=== PATIENT | male | born 1940 | race Caucasian/White ===

== ENCOUNTER 2018-03-07 00:12 | Inpatient (IN) | payer OTHER ==
[2018-03-07] VITALS (7 sets, daily range): BP systolic 91–139; BP diastolic 55–79
[~2018-03-07] VITALS: Ht 172.7 cm; Wt 81.2 kg
--- NOTE | ~2018-03-07 | EKG ---
[place] [id number] [facility] [employer] [place] [address] ELECTROCARDIOGRAM REPORT Name: HONG MEYERS Room #: 452-P ADM IN M.R.#: [id number] Admission: 03/07/18 Attend Phys: Primitivo Lipscomb MD Discharge: Date of : 38 Report #: [id number] THIS REPORT FOR: //name// [facility] ED Test Date: 2018-03-07 Test Time: 01:14:54 Pat Name: HONG MEYERS Department: Room: Gender: M Rn Float: [facility] : 1940 Requested By: Delgado Lou Order Number: [id number] MD: Roman Van Measurements Intervals [place] Rate: 96 P: 46 TX: 205 QRS: 49 QRSD: 83 T: 75 QT: 341 QTc: 431 Interpretive Statements Sinus rhythm Low voltage, precordial leads Abnormal R-wave progression, early transition Baseline wander in lead(s) V1 No previous ECG available for comparison Electronically Signed On 03-07-2018 7:45:04 CDT by Roman Van [email or web address] <ELECTRONICALLY SIGNED> By: Roman Van MD, [facility] 03/07/18 0745 [id number] 011 Roman Van MD, [facility] /EPI
[2018-03-07] MEDS ORDERED: ZOCOR20 MG PO (00:45)
[2018-03-07] MEDS ORDERED: CLARITIN10 MG PO (00:45)
[2018-03-07] MEDS ORDERED: LISINOPRIL10 MG PO (00:45)
[2018-03-07] MEDS ORDERED: ASPIR 8181 MG PO (00:45)
[2018-03-07 01:24] LABS: ABSOLUTE NEUTROPHILS 8.6 thou/uL (1.4-8.2); BASOPHILS 0.8 % (0.0-2.0); EOSINOPHILS 2.4 % (0.0-3.0); HEMATOCRIT 39.9 % (42.0-52.0); HEMOGLOBIN 13.5 gm/dL (14.0-18.0); LYMPHOCYTES 19.2 % (24.0-44.0); MCH 29.5 pg (26.0-34.0); MCHC 33.9 g/dL (28.0-37.0); MONOCYTES 7.2 % (1.0-8.0); PLATELET COUNT 271 thou/uL (150-400); POLYS 70.4 % (36.0-66.0); RBC 4.58 mil/uL (4.50-6.00); WBC 12.2 thou/uL (4.0-11.0)
[2018-03-07 01:28] LABS: ANION GAP 11 mmol/L (7-16); BUN 23 mg/dL (7-18); CALCIUM 9.9 mg/dL (8.5-10.1); CHLORIDE 103 mmol/L (98-107); CO2 22 mmol/L (21-32); CREATININE 1.5 mg/dL (0.7-1.3); GLUCOSE 147 mg/dL (74-106); POTASSIUM 4.2 mmol/L (3.5-5.1); SODIUM 136 mmol/L (136-145)
[2018-03-07 01:36] LABS: ALBUMIN 3.6 g/dL (3.4-5.0); MAGNESIUM 1.9 mg/dL (1.8-2.4); SGOT 19 U/L (15-37); SGPT 21 U/L (30-65); TOTAL BILIRUBIN 0.7 mg/dL (<0.1-1.0); TOTAL PROTEIN 7.6 g/dL (6.4-8.2); TROPONIN-I < 0.04 ng/mL (<0.06)
[2018-03-07] MEDS ORDERED: LISINOPRIL20 MG PO (02:24)
[2018-03-07 20:58] LABS: URINE BILIRUBIN NEGATIVE (Negative); URINE BLOOD NEGATIVE (Negative); URINE CLARITY CLEAR; URINE COLOR YELLOW; URINE GLUCOSE-RANDOM* NEGATIVE (Negative); URINE KETONES NEGATIVE (Negative); URINE LEUKOCYTES-REFLEX NEGATIVE (Negative); URINE NITRITE-REFLEX NEGATIVE (Negative); URINE PROTEIN (DIPSTICK) NEGATIVE (Negative); URINE SPECIFIC GRAVITY 1.025 (1.005-1.035); URINE UROBILINOGEN 0.2 E.U./dl (0.2-1.0)
[2018-03-08 03:16] VITALS: BP 134/78
[2018-03-08 05:32] LABS: HEMATOCRIT 33.8 % (42.0-52.0); MCH 29.7 pg (26.0-34.0); MCHC 34.1 g/dL (28.0-37.0); MCV 87.1 fL (80.0-100.0); RBC 3.88 mil/uL (4.50-6.00); RDW 13.2 % (10.5-14.5)
[2018-03-08 05:36] LABS: HEMOGLOBIN 11.5 gm/dL (14.0-18.0)
[2018-03-08 05:37] LABS: CALCIUM 8.7 mg/dL (8.5-10.1); CREATININE 1.3 mg/dL (0.7-1.3); POTASSIUM 4.2 mmol/L (3.5-5.1)
[2018-03-08 08:00] VITALS: BP 149/88
[2018-03-08 16:00] VITALS: BP 137/81
[2018-03-08 20:36] VITALS: BP 148/91
[2018-03-09 00:12] VITALS: BP 146/85
[2018-03-09 02:42] LABS: CALCIUM 8.8 mg/dL (8.5-10.1); CREATININE 1.1 mg/dL (0.7-1.3); POTASSIUM 3.8 mmol/L (3.5-5.1)
[2018-03-09 02:43] LABS: ABSOLUTE NEUTROPHILS 9.6 thou/uL (1.4-8.2); BASOPHILS 0.8 % (0.0-2.0); EOSINOPHILS 2.4 % (0.0-3.0); HEMATOCRIT 34.2 % (42.0-52.0); HEMOGLOBIN 11.6 gm/dL (14.0-18.0); MCH 29.4 pg (26.0-34.0); MCHC 33.9 g/dL (28.0-37.0); MCV 86.8 fL (80.0-100.0); MONOCYTES 8.8 % (1.0-8.0); PLATELET COUNT 203 thou/uL (150-400); RBC 3.94 mil/uL (4.50-6.00); RDW 12.9 % (10.5-14.5); WBC 12.8 thou/uL (4.0-11.0)
[2018-03-09 05:00] VITALS: BP 124/74
[2018-03-09 08:00] VITALS: BP 137/87
[2018-03-09 16:00] VITALS: BP 144/92
[2018-03-09 19:18] VITALS: BP 138/86
[2018-03-10 02:57] VITALS: BP 138/86
[2018-03-10 05:58] LABS: HEMATOCRIT 34.7 % (42.0-52.0); MCH 29.7 pg (26.0-34.0); MCHC 34.5 g/dL (28.0-37.0); MCV 86.2 fL (80.0-100.0); RBC 4.02 mil/uL (4.50-6.00); RDW 12.8 % (10.5-14.5); WBC 12.7 thou/uL (4.0-11.0)
[2018-03-10 06:17] LABS: CALCIUM 8.8 mg/dL (8.5-10.1); CREATININE 1.1 mg/dL (0.7-1.3); POTASSIUM 4.2 mmol/L (3.5-5.1)
[2018-03-10 08:00] VITALS: BP 157/96
[2018-03-10] MEDS ORDERED: DUONEB 2.5-0.5 M3 ML INH (11:54)
[2018-03-10] MEDS ORDERED: LEVAQUIN 750 M750 MG PO (11:54)
== END 2018-03-10 13:48 | DRG 871 ==
LOC: ER 00:12 → 4W 02:04 → ER 02:04 → EROBS 02:04 → 4W 04:11 → ENTRNSPT 03-10 13:27 → EDTRNSPTSTS 03-10 13:30 → 4W 03-10 13:48
PROVIDERS: Emergency Medicine; Hospitalist; Nurse Practitioner Family
DX: A41.9 Sepsis, unspecified organism (principal); N17.0 Acute kidney failure with tubular necrosis; J18.9 Pneumonia, unspecified organism; J96.01 Acute respiratory failure with hypoxia; I10 Essential (primary) hypertension; E78.5 Hyperlipidemia, unspecified; Z96.652 Presence of left artificial knee joint; E86.0 Dehydration; Z79.82 Long term (current) use of aspirin; Z86.73 Personal history of transient ischemic attack (TIA), and cerebral infarction without residual deficits; Z87.891 Personal history of nicotine dependence; Z95.5 Presence of coronary angioplasty implant and graft; Z79.899 Other long term (current) drug therapy
CPT/HCPCS: 10045

== ENCOUNTER 2019-07-31 22:20 | Inpatient (IN) | payer OTHER, BC ==
[~2019-07-31] VITALS: Ht 175.3 cm; Wt 68.8 kg
[~2019-07-31 22:20] MED LIST: ASPIR 8181 MG PO; BENAZEPRIL HCL5 MG PO; CLARITIN10 MG PO; DUONEB 2.5-0.5 M3 ML INH; FLONASE 0.05%50 MCG NASAL; LEVAQUIN 750 M750 MG PO; LISINOPRIL10 MG PO; LISINOPRIL20 MG PO; MELATONIN5 M1 PO; VENTOLIN HFA 1818 GM INH; ZOCOR20 MG PO
[2019-07-31 22:21] VITALS: BP 121/80
[2019-07-31] MEDS ORDERED: LIPITOR10 MG PO (22:51)
[2019-07-31 22:59] LABS: ABSOLUTE NEUTROPHILS 9.7 thou/uL (1.4-8.2); BASOPHILS 0.8 % (0.0-2.0); EOSINOPHILS 0.2 % (0.0-3.0); HEMATOCRIT 43.7 % (42.0-52.0); HEMOGLOBIN 14.7 gm/dL (14.0-18.0); LYMPHOCYTES 8.3 % (24.0-44.0); MCH 32.2 pg (26.0-34.0); MCHC 33.7 g/dL (28.0-37.0); MCV 95.4 fL (80.0-100.0); MONOCYTES 6.2 % (1.0-8.0); PLATELET COUNT 269 thou/uL (150-400); POLYS 84.5 % (36.0-66.0); RBC 4.58 mil/uL (4.50-6.00); RDW 16.6 % (10.5-14.5); WBC 11.5 thou/uL (4.0-11.0)
[2019-07-31 23:04] LABS: ANION GAP 12 mmol/L (7-16); BUN 31 mg/dL (7-18); CALCIUM 10.4 mg/dL (8.5-10.1); CHLORIDE 104 mmol/L (98-107); CO2 25 mmol/L (21-32); CREATININE 1.3 mg/dL (0.7-1.3); GLUCOSE 139 mg/dL (74-106); POTASSIUM 3.7 mmol/L (3.5-5.1); SODIUM 141 mmol/L (136-145)
[2019-07-31 23:13] LABS: ALBUMIN 3.4 g/dL (3.4-5.0); DIRECT BILIRUBIN 0.3 mg/dL (<0.1-0.3); LIPASE 193 U/L (73-393); SGOT 27 U/L (15-37); SGPT 11 U/L (30-65); TOTAL BILIRUBIN 1.2 mg/dL (<0.1-1.0); TROPONIN-I <0.06 ng/mL (<0.06)
[2019-07-31 23:19] LABS: URINE BILIRUBIN NEGATIVE (Negative); URINE BLOOD NEGATIVE (Negative); URINE CLARITY CLEAR; URINE COLOR YELLOW; URINE GLUCOSE-RANDOM* NEGATIVE (Negative); URINE KETONES TRACE (Negative); URINE LEUKOCYTES-REFLEX NEGATIVE (Negative); URINE NITRITE-REFLEX NEGATIVE (Negative); URINE PROTEIN (DIPSTICK) NEGATIVE (Negative); URINE SPECIFIC GRAVITY >= 1.030 (1.005-1.035)
[2019-08-01 06:31] VITALS: BP 143/79
[2019-08-01 06:34] VITALS: BP 146/81
[2019-08-01 06:54] LABS: HEMATOCRIT 41.2 % (42.0-52.0); HEMOGLOBIN 13.6 gm/dL (14.0-18.0); MCH 31.6 pg (26.0-34.0); MCV 95.5 fL (80.0-100.0); RBC 4.31 mil/uL (4.50-6.00); RDW 16.4 % (10.5-14.5); WBC 11.6 thou/uL (4.0-11.0)
[2019-08-01 07:28] LABS: FOLIC ACID 1.3 ng/mL (8.6-58.9); TSH 0.054 uIU/mL (0.358-3.740)
[2019-08-01 07:33] VITALS: BP 157/91
[2019-08-01 08:00] LABS: ANION GAP 15 mmol/L (7-16); BUN 31 mg/dL (7-18); CALCIUM 10.3 mg/dL (8.5-10.1); CHLORIDE 108 mmol/L (98-107); CHOLESTEROL 103 mg/dL (<200); CO2 18 mmol/L (21-32); CREATININE 1.1 mg/dL (0.7-1.3); GLUCOSE 118 mg/dL (74-106); HDL CHOLESTEROL 30 mg/dL (>40); LDL CHOLESTEROL 60 mg/dL (<100); SODIUM 141 mmol/L (136-145); TC:HDL 3.4 Ratio (Not establshd); TRIGLYCERIDE 68 mg/dL (<150); VLDL 14 mg/dL (<40)
[2019-08-01 08:07] LABS: POTASSIUM 4.1 mmol/L (3.5-5.1)
--- NOTE | 2019-08-01 13:45 | NUR ---
INITIAL ASSESSMENT: Pt evaluated for d/c planning needs. Reviewed chart and spoke with nurse, pt and pt's 2 sons. Pt lives in house with son Jorge. Pt's son Keaton lives close by and is supportive and involved. Pt has walker and cane at home. Pt is curently on service with home health, but does not recall name of company. Pt was hospitalized at [facility] last year and went to [facility] in February 2018. Sons would prefer pt return home on d/c from hospital, if possible. If not, their first choice fo rehab would be [facility]. They are also agreeable to SNF if needed. Will remain available to assist as needed and will make referrals as needed.
[2019-08-01 15:30] VITALS: BP 125/66
--- NOTE | 2019-08-01 19:43 | NUR ---
pt admitted from ER, pt is A&OX2 ( person and place), but pt response and ansower questions slowly, pt is continuing iv fliud, and we help pt to eat and drink, pt has worked with PT/OT/SP, PT'S vs are stable, but pt only has one time urine in incontinent, RN did bladder scan about 1730pm, result show 476ml, RN has called , new order insert Folery catheter, RN has try 1 time to insert Reyes catheter, but Reyes catheter does not succesful to put , because it is difficult to put in, RN has reported to next shift to get diffirent catheter to try agin.
[2019-08-01 19:57] VITALS: BP 131/66
--- NOTE | 2019-08-02 04:19 | NUR ---
PATIENT ALERT AND ORIENTED TO PERSON AND PLACE. DOES NOT KNOW WHY IN HOSPITAL OR TIME OF YEAR. UNABLE TO VOID EARLIER TODAY. BLADDER SCAN DONE AND ORDER OBTAINED TO PUT MACIAS IN. DAYS TRIED [facility] A REGULAR CATH BUT WAS UNSUCCESSFUL. TRIED WITH A COUDE CATH AND WAS ABLE TO GET IN WITH NO TROUBLE AT ALL. DENIES PAIN. PATIENT IS A FEEDER. SLEPT MOST OF NIGHT.
[2019-08-02 05:23] LABS: HEMATOCRIT 37.7 % (42.0-52.0); HEMOGLOBIN 12.7 gm/dL (14.0-18.0); MCH 32.1 pg (26.0-34.0); MCHC 33.6 g/dL (28.0-37.0); MCV 95.8 fL (80.0-100.0); RBC 3.94 mil/uL (4.50-6.00); RDW 16.8 % (10.5-14.5); WBC 10.4 thou/uL (4.0-11.0)
[2019-08-02 05:29] LABS: CALCIUM 9.4 mg/dL (8.5-10.1); CREATININE 1.1 mg/dL (0.7-1.3); POTASSIUM 3.5 mmol/L (3.5-5.1)
[2019-08-02 07:23] VITALS: BP 145/79
--- NOTE | 2019-08-02 14:02 | NUR ---
S/W PT'S SON TEREZA TO ALERT THAT [facility] CAN TAKE PT ONCE MEDICALLY STABLE. HE WILL DISCUSS THIS WITH HIS BROTHER JAIME. FOLLOWING TO ASSSIT WITH DC PLANNING.
[2019-08-02 16:29] VITALS: BP 133/68
--- NOTE | 2019-08-02 17:32 | NUR ---
PT ASSESSED THIS AM. PT NOT TALKING MUCH. SPEECH IN TO EVAL TODAY. PT TAKING PUREED W/ HONEY THICK LIQUIDS. UP TO THE RECLINER W/ ASSIST OF ONE USING WALKER AND DID WELL. AMBULATING W/ THERAPY THIS AFTERNOON. PT TAKING SOME PO BUT NOT WANTING MUCH. URINE IN MACIAS DARK FROM OLD BLOOD. CLEARED LATER IN DAY. SONS HERE TO VISIT.
[2019-08-02 19:51] VITALS: BP 145/59
--- NOTE | 2019-08-03 05:03 | NUR ---
PATIENT ALERT AND ORIENTED X [id number] AND PLACE. MACIAS PATENT MAYA COLORED URINE VOID OF BLOOD CLOTS. PATIENT ON HONEY THICK LIQUIDS, DENIES PAIN AND SLEPT MOST OF NIGHT.
[2019-08-03 05:50] LABS: HEMATOCRIT 36.6 % (42.0-52.0); HEMOGLOBIN 12.3 gm/dL (14.0-18.0); MCH 32.3 pg (26.0-34.0); MCHC 33.6 g/dL (28.0-37.0); MCV 95.9 fL (80.0-100.0); RBC 3.82 mil/uL (4.50-6.00); RDW 16.8 % (10.5-14.5); WBC 8.9 thou/uL (4.0-11.0)
[2019-08-03 06:06] LABS: CALCIUM 9.1 mg/dL (8.5-10.1); CREATININE 1.1 mg/dL (0.7-1.3); POTASSIUM 3.6 mmol/L (3.5-5.1)
[2019-08-03 08:35] VITALS: BP 124/83
--- NOTE | 2019-08-03 12:06 | EKG ---
[address] [place] [address] ELECTROCARDIOGRAM REPORT Name: HONG MEYRES Room #: 447-P ADM IN M.R.#: [id number] Admission: 07/31/19 Attend Phys: Primitivo Lipscomb MD Discharge: Date of : 38 Report #: [id number] THIS REPORT FOR: //name// [facility] ED Test Date: 2019-07-31 Test Time: 23:02:36 Pat Name: HONG MEYERS Department: Room: [facility] Gender: M Car Conditioner: eda chicas rn : 1940 Requested By: Nubia Arreguin Order Number: [id number] MD: Rickey Singh Measurements Intervals [place] Rate: 83 P: 49 ID: [id number] QRS: 44 QRSD: 86 T: 54 QT: 366 QTc: 430 Interpretive Statements Sinus rhythm Abnormal R-wave progression, early transition Compared to ECG 03/07/2018 01:14:54 No significant changes Electronically Signed On 08-03-2019 12:06:12 EAR MOLD LABORATORY TECHNICIAN by Rickey Singh [email or web address] <ELECTRONICALLY SIGNED> By: Rickey Singh MD 08/03/19 1206 [id number] Rickey Singh MD /RAHEEM
--- NOTE | 2019-08-03 15:05 | NUR ---
ASSUMED CARE OF PT AT 0700. PT UP IN CHAIR WITH FEET ELEVATED AND CHAIR ALARM ON, WITH CALL LIGHT WITHIN REACH. MACIAS SECURED IN PLACE AND PATENT. PT NEEDS OBSERVATION WHEN EATING AND SWALLOWING DUE TO ASPIRATION. HONEY THICK LIQUIDS WITH NO STRAW. FALL PRECAUTIONS INREACH. [facility] ONTINUE TO MONITOR THE PT.
[2019-08-03 16:00] VITALS: BP 143/84
[2019-08-03] MEDS ORDERED: FOLIC ACID1 MG PO (16:16)
[2019-08-03] MEDS ORDERED: B-12500 MCG PO (16:16)
[2019-08-03] MEDS ORDERED: ROBITUSSIN100 MG/53 PO (16:16)
[2019-08-03] MEDS ORDERED: AUGMENTIN 875-1 EACH PO (16:17)
--- NOTE | 2019-08-03 16:52 | NUR ---
NOTIFIED SON JAIME THAT PT WILL TRANSFER TO [facility] LATER TODAY. KUSH SANDOVAL IS ON HIS WAY HERE NOW.
--- NOTE | 2019-08-03 20:18 | NUR ---
PT WAS DISCHARGED TO REHAB AT APPROX 1949 WITH ALL HIS PERSONAL BELONGINGS IN THE COMPANY OF HIS SON IN A STABLE CONDITION.
== END 2019-08-03 19:50 | DRG 177 ==
LOC: ER 22:20 → EROBS 23:32 → 4S 23:32
PROVIDERS: Emergency Medicine; Nurse Practitioner Family; ADMIT Hospitalist
DX: J69.0 Pneumonitis due to inhalation of food and vomit (principal); E43 Unspecified severe protein-calorie malnutrition; N17.9 Acute kidney failure, unspecified; I69.354 Hemiplegia and hemiparesis following cerebral infarction affecting left non-dominant side; E86.0 Dehydration; I10 Essential (primary) hypertension; E78.5 Hyperlipidemia, unspecified; G47.00 Insomnia, unspecified; K59.00 Constipation, unspecified; E53.8 Deficiency of other specified B group vitamins; R63.4 Abnormal weight loss; E55.9 Vitamin D deficiency, unspecified; R13.10 Dysphagia, unspecified; Z87.891 Personal history of nicotine dependence; Z79.82 Long term (current) use of aspirin; Z79.899 Other long term (current) drug therapy; Z68.22 Body mass index [BMI] 22.0-22.9, adult; Z95.5 Presence of coronary angioplasty implant and graft; Z28.21 Immunization not carried out because of patient refusal
CPT/HCPCS: 10195

== ENCOUNTER 2019-08-03 14:02 | Inpatient (IN) | payer OTHER, BC ==
[~2019-08-03] VITALS: Ht 175.3 cm; Wt 68.5 kg
[~2019-08-03 14:02] MED LIST changes: +LIPITOR10 MG PO
[2019-08-03] MEDS ORDERED: ROBITUSSIN100 MG/53 PO (16:16)
[2019-08-03] MEDS ORDERED: B-12500 MCG PO (16:16)
[2019-08-03] MEDS ORDERED: FOLIC ACID1 MG PO (16:16)
[2019-08-03] MEDS ORDERED: AUGMENTIN 875-1 EACH PO (16:17)
[2019-08-03 20:42] VITALS: BP 162/113
[2019-08-03 21:28] VITALS: BP 158/92
--- NOTE | 2019-08-03 23:40 | NUR ---
PT ADMITTED TO [facility] THIS EVENING. SUPPORTIVE SON AT BEDSIDE. ADMIT HX AND ASSESSMENT COMPLETED. ASST PT WITH REPOSITION FOR COMFORT. FALL PRECAUTIONS IN PLACE. MACIAS FOR RETENTION DRAINING DARK YELLOW URINE. SLEEPING WELL AT THIS TIME. WILL CONTINUE TO MONITOR FREQUENTLY.
[2019-08-04 05:36] LABS: HEMATOCRIT 35.9 % (42.0-52.0); MCH 32.1 pg (26.0-34.0); MCHC 33.5 g/dL (28.0-37.0); MCV 95.8 fL (80.0-100.0); RBC 3.75 mil/uL (4.50-6.00); RDW 16.8 % (10.5-14.5); WBC 9.2 thou/uL (4.0-11.0)
[2019-08-04 05:52] LABS: CALCIUM 9.1 mg/dL (8.5-10.1); CREATININE 0.9 mg/dL (0.7-1.3); MAGNESIUM 1.8 mg/dL (1.8-2.4); POTASSIUM 3.6 mmol/L (3.5-5.1)
[2019-08-04 07:45] VITALS: BP 172/104
--- NOTE | 2019-08-04 09:21 | NUR ---
ASSUMED CARE AT 0700. PATIENT IS ALERT AND ORIENTED TO PERSON, BUT FORGETFUL. PATIENT HAS LEFT SIDED WEAKNESS. PATIENT SPEAKS VERY SOFTLY. LUNGS ARE COARSE AND DEMINISHED. ABD IS SOFT WITH BSX4. PATIENT HAS MACIAS TO DD, DRAINING CONCENTRATED URINE. ENCOURAGED HONEY THICK LIQUIDS. PATIENT IS OUT TO THE DINING ROOM PER W/C WITH ASSIST OF TWO STAFF WITH GAIT BELT AND WALKER AND W/C. PATIENT HAD DIFFICULTY WITH CONCEPT OF STAND, PIVOT, SIT. S.L. IS IN RIGHT FORARM. FALL AND SAFETY PROTOCOLS IN PLACE. DENIES ANY PAIN AT THIS TIME. CONTINUES TO PROGRESS SLOWLY TOWARDS D/C GOALS. WILL CONTINUE TO MONITER.
[2019-08-04 19:47] VITALS: BP 151/98
--- NOTE | 2019-08-04 21:29 | NUR ---
PT ASSESSMENT DONE AND VSS. MEDICATION GIVEN AND WELL TOLERATED. SUPPOSITORY GIVEN FOR CONSTIPATION. AWAITING RESULTS. FALL PRECAUTIONS IN PLACE. CALL LIGHT IN REACH. HOURLY ROUNDING. WILL CONTINUE TO MONITOR.
[2019-08-05 07:39] VITALS: BP 163/107
[2019-08-05 09:15] VITALS: BP 170/104
[2019-08-05 10:20] VITALS: BP 166/106
[2019-08-05 12:30] VITALS: BP 131/84
--- NOTE | 2019-08-05 13:12 | NUR ---
Has been in bed today, he is very soft spoken, he stated he just wants to remain in bed, he does turn and reposition himself, he is alert and oriented x 2, he has a poor appetite today, he has refused meals x 2 so far, he is compliant with his medications, he did stated he wanted some coke to drink, but he said "not thick" explained he was on thick liquids and he them made a face when told. he has had a few bits of applesauce with meds and continued to refuse fluids. Continue to monitor appetite, and for safety.
[2019-08-05 19:37] VITALS: BP 157/94
--- NOTE | 2019-08-06 02:24 | NUR ---
MACIAS CATHETER FOR RETENTION, PATIENT TURNING SELF AT LEAST EVERY 2 HOURS. APPRECIATED APPLESAUCE AND ENOUGH HONEY THICK WATER TO RINSE OUT THE TASTE OF CRUSHED AUGMENTIN. QUIET CONVERSATION. WATCHED TV UNTIL 2229. PLEASANT
[2019-08-06 07:45] VITALS: BP 149/107
[2019-08-06 10:42] VITALS: BP 149/107
--- NOTE | 2019-08-06 10:42 | NUR ---
Received awake on bed. Due medications given as prescribed- crushed and mixed with apple sauce and pudding- Speech therapist present during medication administration, tried for patient to swallow small tablet but pt still has poor swallowing ability thus remaining meds crushed. A+O. On room air. Vital signs stable. Assisted in ADLs, eating and drinking. On honey thick fluid consistency- aspiration protocol observed. Falls risk- falls bundle in place. With orr in place, draining well- output measured and recorded accordingly. Pt went down at around 9am via wheelchair to attend program for 's day- [employer] beef cattle farm manager aware.
--- NOTE | 2019-08-06 10:43 | NUR ---
Case opened to follow for dc planning. Pt admitted to the acute rehab unit on 08/03/19. He is being seen by PT/OT/ST. He was downstairs for the Vetran's Day celebration this morning and he is currently sleeping. Box Covering Machine Operator visited with the pt's son Jorge via phone. The pt is also known to cm and the rehab team from previous admissions. The pt had a stroke and a rehab stay last year. He lives at home with his son Jorge. His other son Keaton lives close by. Jorge works outside the home so the pt is typically home alone during the daytime. He was receiving hh per [facility] prior to admission for RN, PT and OT services. He has a rwalker,wc and a cane at home. He has one step into the home and then everything is on the main level. He is normally able to be at home on his own but reported some days he stays in bed if he does not feel well. Pt and his sons are hopeful he can return home with HH at [facility]. [facility] advised of his admission. They would like a couple of days notice of dc and a referral sent at that time. He is now on a modified diet with thickened liquids which he does not like. Pt's son aware of team conference tomorrow. Will follow along and assist with resumption of hh at [facility] as well as possible private duty referral if needed.
[2019-08-06 18:09] LABS: T4 (THYROXINE) 6.8 ug/dL (4.5-12.0)
[2019-08-06 20:13] VITALS: BP 100/61
--- NOTE | 2019-08-07 03:58 | NUR ---
COUNTING CALORIES, PATIENT TOLERATED APPLESAUCE AND HONEY THICK APPLE JUICE WITH MEDS. RESTING WELL, TURNING SELF TO SIDE. MACIAS TO GUIDO FPR RETENTION
[2019-08-07 07:30] VITALS: BP 137/80
--- NOTE | 2019-08-07 13:06 | NUR ---
team meeting, recommendation: re team frequent offer pt honey thick liquid for hydration, on honey thick liquid puree diet. started working with vital stim with st today. anticipation dc 27th hh ( pt, ot, st with vital stim). no dme
--- NOTE | 2019-08-07 17:03 | NUR ---
NM ROUNDED WITH PATIENT, AND HIS SONS WERE IN THE ROOM. CHAR STARKS AND JAIME REQUESTED INFORMATION FROM TEAM CONFERENCE, AND NM REVIEWED THIS INFO, ALONG WITH ESTIMATED DC DATE OF 08/22. KUSH SANDOVAL STATED THAT HIS DAD WOULD BE AT HOME FOR 4-6 HOURS AT A TIME ALONE AT DISCHARGE BECAUSE FAMILY WORKS OUTSIDE OF THE HOME. HE EXPRESSED THAT THE PT WOULD HAVE TO BE ABLE TO EAT, DRINK, AND TIOLET HIMSELF INDEPENDENTLY AFTER SETUP. KUSH SANDOVAL COULD GET PT SET UP IN THE MORNING, AND KUSH STARKS COULD COME AT NOON TO CHECK ON THE PT AND MAKE SURE HE WAS OK, THEN KUSH SANDOVAL WOULD RETURN IN THE EVENING AFTER WORK, BUT THERE WOULD BE SEVERAL HOURS WHEN PT WOULD BE TOTALLY ALONE. DISCUSSED OTHER OPTIONS IN GENERAL TERMS AND EXPLAINED THE DIFFERENCES BETWEEN PVT DUTY, SKILLED CARE AND ASSISTED LIVING SETTINGS. KUSH SANDOVAL WAS ADVISED THAT WE WOULD SUPPORT HIM WITH MUCH INFORMATION REGARDING ALL OPTIONS AT DISCHARGE. JAIME WAS VERY APPRECIATIVE AND STATED THAT HE AND HIS BROTHERS WOULD APPRECIATE ALL OF THE INFORMATION WE COULD GIVE THEM, EARLY IN THE PROCESS POSSIBLE, SO THEY COULD EXPLORE WHAT BEST FITS HIS NEEDS. WILL FOLLOW UP WITH CM FOR LITERATURE.
--- NOTE | 2019-08-07 17:08 | NUR ---
ASSUMED CARE AT 0700, SHIFT ASSESSMENT DONE, MEDS GIVEN, VSS. DENIES PAIN, NAUSEA, VOMITING. UP WITH ASSIST TIMES ONE. APPETITE VERY POOR, NEEDS TO BE FEED. MACIAS IN PLACE. WILL CONTINUE TO ASSESS AND ASSIST WITH ADLs NEEDED.
[2019-08-07 19:24] VITALS: BP 159/84
--- NOTE | 2019-08-08 00:43 | NUR ---
PT ASSESSMENT COMPLETED AND VSS. MEDS GIVEN ORDERED AND WELL TOLERATED. ENC PT WITH PO HONEY THICK LIQUIDS. URINE DARK. MACIAS IN PLACE FOR RETENTION. TURNED FREQUENTLY USING PILLOWS FOR COMFORT. BARRIER CREAM APPLIED TO RED BUTTOCK CLEMENTE. SLEEPING WELL. WILL CONTINUE TO MONITOR FREQUENTLY.
[2019-08-08 07:25] VITALS: BP 96/64
[2019-08-08 10:04] LABS: CALCIUM 10.7 mg/dL (8.5-10.1); CREATININE 2.2 mg/dL (0.7-1.3); POTASSIUM 3.5 mmol/L (3.5-5.1)
--- NOTE | 2019-08-08 10:27 | NUR ---
ASSUMED CARE AT 0700. PATIENT IS ALERT AND ORIENTED TO PERSON. PATIENT HAS LEFT SIDED WEAKNESS. LUNGS ARE CLEAR. ABD IS SOFT WITH BSX4. APPITITE IS POOR AND CONTINUES ON CALORIE COUNT. PATIENT HAS MACIAS TO DD, DRAINING MAYA COLORED URINE. PATIENT IS TO HAVE FLUIDS ENCOURAGED. PATIENT IS A TURN Q 2 HOURS. PATIENT REQUIRES CUEING TO EAT MEALS. FALL AND SAFETY PROTOCOLS IN PLACE. WILL CONTINUE TO MONITER.
--- NOTE | 2019-08-08 10:37 | NUR ---
cm notified by therapy that pt son azul was here already this morning and left. cm called azul and left message asking for a return call rt dcp.
--- NOTE | 2019-08-08 15:06 | NUR ---
Patient participated in community reintegration on 08/08/19 with SPEECH THERAPIST. Refer to documentation by SPEECH THERAPIST.
[2019-08-08 21:00] VITALS: BP 76/42
[2019-08-08 22:20] VITALS: BP 118/76
--- NOTE | 2019-08-09 02:53 | NUR ---
TURNED TO SIDE, GILBERTO TO GUIDO. UP 90 DEGREES AT 2200 FOR CRUSHED PO MEDS AND 6 X 4 OUNCE CONTAINERS OF HONEY THICKENED LIQUIDS A SPOONFUL AT A TIME, TOLERATED WELL WITH NO COUGHING.
[2019-08-09 05:51] LABS: CALCIUM 9.4 mg/dL (8.5-10.1); CREATININE 1.9 mg/dL (0.7-1.3)
[2019-08-09 09:00] VITALS: BP 101/65
--- NOTE | 2019-08-09 13:00 | NUR ---
ASSUMED CARE AT 0700. PATIENT IS ALERT AND ORIENTED TO PERSON. LUNGS ARE CLEAR. ABD IS SOFT WITH BSX4. PATIENT HAS MACIAS CATHETER TO DD,DRAINING TEA COLORED URINE. UP WITH MAX ASSIST OF 2 STAFF. PATIENT HAS LEFT SIDED WEAKNESS. PATIENT UP TO THE DINING ROOM FOR MEALS. ENCOURAGE PO FLUIDS. FALL AND SAFETY PROTOCOLS IN PLACE. DENIES PAIN. CONTINUES TO PROGRESS TOWARDS D/C GOALS. WILL CONTINUE TO MONITER.
--- NOTE | 2019-08-09 15:55 | NUR ---
S.L. INSERTED INTO PATIENTS RIGHT ARM WITH 22 GA JELCO. PATIENT TOLERATED PROCEDURE . IV SITE WITHOUT REDNESS OR SWELLING. IVF OF NS STARTED AT 75CC/HR PER PUMP. PATIENT REPOSITIONED TO HIS RIGHT SIDE. WILL CONTINUE TO MONITER.
[2019-08-09 19:15] VITALS: BP 120/43
--- NOTE | 2019-08-09 22:42 | NUR ---
PT ASSESSMENT COMPLETED AND VSS. MEDS GIVEN ORDERED AND WELL TOLERTED. ENC PO HONEY THICK LIQUID. IVF RUNNING. URINE MUCH FURNITURE POLISHER THIS EVENING. ASST WITH FREQUENT REPOSITION FOR COMFORT. CREAM APPLIED TO FUNGAL SCROTUM. SLEEPING WELL. WILL CONTINUE TO MONITOR FREQUENTLY.
[2019-08-10 05:52] LABS: CALCIUM 9.2 mg/dL (8.5-10.1); CREATININE 1.4 mg/dL (0.7-1.3)
[2019-08-10 06:05] LABS: POTASSIUM 4.1 mmol/L (3.5-5.1)
[2019-08-10 08:00] VITALS: BP 105/65
--- NOTE | 2019-08-10 13:46 | NUR ---
ASSUMED CARES AT 0700. PT AWKE, ORIENTED TO PERSON AND PLACE, FORGETFUL. DENIES PAIN. RIGHT FOREARM IV REMAINS INTACT AND PATENT, NS AT 75ML/HR AFTER THERAPY. GROIN AREA CLEANED AND ANTIFUNGAL CREAM APPLIED. PT CONTINUES TO HAVE LOOSE STOOLS, IMMODIUM ADMINISTERED PER ORDER. MACIAS REMAINS INTACT AND PATENT, URINE IS MAYA YELLOW AND CLEAR. PATIENT DRINKING UPTO 600CC OF HONEY-THICK LIQUIDS WITH MEALS AND TOLERATING WELL. ASPIRATION PRECAUTIONS MAINTAINED. UP WITH MAX ASSIST. Q1H VISUAL CHECKS. CALL LIGHT WITHIN REACH. FALL PRECAUTIONS IN PLACE
[2019-08-10 20:40] VITALS: BP 100/56
--- NOTE | 2019-08-11 00:23 | NUR ---
PT ALERT AND ORIENTED X 2. MACIAS PATENT DRAINING ADEQUATE AMTS DARK YELLOW URINE WITH SEDIMENT. PT TOOK HS MEDS CRUSHED IN APPLESAUCE WITHOUT DIFFICULTY. PT DENIES PAIN OR DISCOMFORT. BED ALARM ON FOR SAFETY. PT APPEARS TO BE SLEEPING ON HOURLY ROUNDS.
[2019-08-11 05:52] LABS: ABSOLUTE NEUTROPHILS 6.4 thou/uL (1.4-8.2); BASOPHILS 0.9 % (0.0-2.0); EOSINOPHILS 4.9 % (0.0-3.0); HEMATOCRIT 35.4 % (42.0-52.0); HEMOGLOBIN 11.8 gm/dL (14.0-18.0); LYMPHOCYTES 16.9 % (24.0-44.0); MCH 32.2 pg (26.0-34.0); MCHC 33.3 g/dL (28.0-37.0); MCV 96.7 fL (80.0-100.0); MONOCYTES 8.9 % (1.0-8.0); PLATELET COUNT 229 thou/uL (150-400); POLYS 68.4 % (36.0-66.0); RBC 3.66 mil/uL (4.50-6.00); RDW 16.9 % (10.5-14.5); WBC 9.4 thou/uL (4.0-11.0)
[2019-08-11 05:56] LABS: CALCIUM 9.5 mg/dL (8.5-10.1); MAGNESIUM 1.7 mg/dL (1.8-2.4); POTASSIUM 3.6 mmol/L (3.5-5.1)
[2019-08-11 09:28] VITALS: BP 127/77
--- NOTE | 2019-08-11 12:27 | NUR ---
ASSUMED CARES AT 0700. PT AWAKE, ORIENTED TO SELF ONLY, FORGETFUL AND CONFUSED. DENIES PAIN. "I DON'T FEEL GOOD", PT STATED THIS AM. AFTER PROBING FURTHER THE PT STATED THAT HE IS JUST TIRED. VITALS REMAIN STABLE. ABD SOFT AND FLAT, PT HAD 2 LOOSE BMS (INCONTINENT) THIS AM, IMMODIUM ADMINISTERED NEEDED. MACIAS REMAINS INTACT, URINE IS MAYA WITH DARK COLORED SEDIMENT. PT UP WITH 2MAX ASSIST, PIVOT TRANSFERS. REDNESS REMAINS ON SACRAL AREA AND AROUND THE SCROTUM, ANTIFUGAL CREAM NEEDED PER ORDER. PT REPOSITIONED Q2H. Q1H VISUAL CHECKS. CALL LIGHT WITHIN REACH. FALL PRECAUTIONS IN PLACE
[2019-08-11 19:21] VITALS: BP 115/69
--- NOTE | 2019-08-11 23:41 | NUR ---
PT ASSESSMENT DONE AND VSS. MEDS GIVEN AND WELL TOLERATED. FALL PRECAUTIONS IN PLACE. MACIAS DRAINING. HOURLY ROUNDING. CALL LIGHT IN REACH. SLEEPING WELL. WILL CONTINUE TO MONITOR.
[2019-08-12 09:07] VITALS: BP 117/66
[2019-08-12 11:41] LABS: CALCIUM 9.8 mg/dL (8.5-10.1); CREATININE 1.1 mg/dL (0.7-1.3); MAGNESIUM 1.6 mg/dL (1.8-2.4); PHOSPHORUS 1.8 mg/dL (2.5-4.9); POTASSIUM 3.9 mmol/L (3.5-5.1)
--- NOTE | 2019-08-12 18:13 | NUR ---
PT ALERT AND ORIENTED TIMES THREE. VSS, RA. PT DENIES PAIN/SOA. PT TOLERATES MEDS AND MEALS. PT UP TO CHAIR FOR SOME PART OF THE DAY. PT SON AT BEDSIDE. PT PROGRESSING TOWRADS POC GOALS.
[2019-08-12 19:31] VITALS: BP 147/93
--- NOTE | 2019-08-12 23:30 | NUR ---
PT ASSESSMENT DONE AND VSS. MEDS GIVEN AND WELL TOLERATED. FALL PRECAUTIONS IN PLACE. HOURLY ROUNDING. CALL LIGHT IN REACH. SLEEPING WELL. WILL CONTINUE TO MONITOR.
[2019-08-13 05:47] LABS: ABSOLUTE NEUTROPHILS 6.2 thou/uL (1.4-8.2); BASOPHILS 0.9 % (0.0-2.0); EOSINOPHILS 4.8 % (0.0-3.0); HEMATOCRIT 34.5 % (42.0-52.0); HEMOGLOBIN 11.7 gm/dL (14.0-18.0); LYMPHOCYTES 17.6 % (24.0-44.0); MCH 32.8 pg (26.0-34.0); MCHC 33.8 g/dL (28.0-37.0); PLATELET COUNT 228 thou/uL (150-400); POLYS 65.7 % (36.0-66.0); RBC 3.55 mil/uL (4.50-6.00); RDW 16.5 % (10.5-14.5); WBC 9.5 thou/uL (4.0-11.0)
[2019-08-13 05:58] LABS: MAGNESIUM 1.5 mg/dL (1.8-2.4); PHOSPHORUS 4.1 mg/dL (2.5-4.9)
[2019-08-13 09:40] VITALS: BP 115/71
--- NOTE | 2019-08-13 16:39 | NUR ---
ASSUMED CARE AT SHIFT CHANGE, ALERT AND ORIENTED X4. REMAINS ON ASPIRATION PRECAUTIONS. ASSESMENT DOCUMENTED, AFEBRILE AND VSS. GILBERTO DISCONTNUED AT 1630. DENIES ANY DISCOMFORT AND WILL CONTNUE WITH POC.
[2019-08-13 19:51] VITALS: BP 145/82
--- NOTE | 2019-08-14 00:15 | NUR ---
PT ALERT AND ORIENTED X 4. INCONT OF URINE IN SMALL AMT X 1. BLADDER SCAN 70 AT MIDNIGHT. PT TOOK HS MEDS CRUSHED IN APPLESAUCE WITHOUT DIFFICULTY. PT DENIES PAIN OR DISCOMFORT. BED ALARM ON FOR SAFETY. PT CHECKED ON HOURLY ROUNDS.
[2019-08-14 10:32] VITALS: BP 98/61
--- NOTE | 2019-08-14 11:09 | NUR ---
ASSUMED CARE AT 0700. PATIENT IS ALERT AND ORIENTEDX3, BUT FORGETFUL. PATIENT HILARIO'S, DRY WALL APPLICATOR ARE EQUAL. LUNGS ARE CLEAR AND DEMINISHED. ABD IS SOFT WITH BSX4. PATIENT IS INCONTINENT OF URINE AND STOOL. UP TO THE DINING ROOM PER W/C. ST HERE TO DO THERAPUTIC FEED WITH JEANNIE-STIM. FALL AND SAFETY PROTOCOLS IN PLACE. DENIES ANY PAIN. CONTINUES TO WALK IN THE SLING WITH P.T. WILL CONTINUE TO MONITER. S.L. D/C'D.
--- NOTE | 2019-08-14 14:25 | NUR ---
team meeting, recommendation: diet honey thick with puree. dc 27th looking at dc option. will need 24hr supervision. pt cont to be incont b & b.
[2019-08-14 19:07] VITALS: BP 122/83
--- NOTE | 2019-08-14 23:31 | NUR ---
PT ASSESSMENT DONE AND VSS. MED GIVEN AND WELL TOLERATED. FALL PRECAUTIONS IN PLACE. SLEEPING WELL. HOURLY ROUNDING. CALL LIGHT IN REACH. WILL CONTINUE TO MONITOR.
[2019-08-15 07:55] VITALS: BP 120/86
--- NOTE | 2019-08-15 14:33 | NUR ---
ASSUMED CARES AT 0700. PT AWAKE, ORIENTED TO PERSON AND PLACE ONLY, FORGETFUL. DENIES PAIN. VITALS REMAIN STABLE. PT REMAINS INCONTINENT OF BOWEL AND BLADDER, *2 LOOSE STOOLS THIS AM, IMMODIUM ADMINISTERED PER ORDER. URINE REMAINS DARK MAYA WITH NO FOUL ODOR, PUSHING FLUIDS. PT CONTINUES TO EAT 50% PER MEAL, MEDS CRUSHED IN APPLESAUCE, ASPIRATION PRECAUTIONS MAINTAINED. PT UP WITH 1-2 MOD ASSIST, GB AND WALKER. Q1H VISUAL CHECKS. CALL LIGHT WITHIN REACH. FALL PRECAUTIONS IN PLACE
[2019-08-15 19:50] VITALS: BP 91/62
--- NOTE | 2019-08-15 22:55 | NUR ---
ASSUMED CARE OF PT @1900 PT ASSESSED AT START OF SHIFT A&O2 FORGETFULL. DENIES PAIN. INCONTINENT. TAKES PILLS CRUSHED WITH APPLE SAUCE. SWALLOWING PROTOCOL MAINTAINED. FALL PREC IN PLACE, HOURLY ROUNDING DONE WILL CONT WITH POC TILL EOS.
[2019-08-16 07:23] VITALS: BP 154/94
--- NOTE | 2019-08-16 10:33 | NUR ---
angelina visited with son azul while he here to see his dad. " been to [facility], and [facility], going to go see [facility] and [facility] today. my brother or i will let you know which ones to send referrals to by tomorrow tuesday"/azul. will cont following as needed for dc needs.
--- NOTE | 2019-08-16 13:43 | NUR ---
ASSUMED CARES AT 0700. PT ORIENTED TO SELF ONLY, FORGETFUL. DENIES PAIN. VITALS REMAIN STABLE. PT REMAINS INCONTINENT OF BLADDER, HAD *1 CONTINENT BM. PT EATING >50% OF HIS MEALS TODAY, TOOK 100% OF HIS SUPPLEMENTS, CONTINUING TO PUSH FLUIDS. PT UP WITH 1 MOD ASSIST, PIVOT TRANSFERS AND TOLERATED WELL. Q1H VISUAL CHECKS. CALL LIGHT WITHIN REACH. FALL PRECAUTIONS IN PLACE
[2019-08-16 19:29] VITALS: BP 104/61
--- NOTE | 2019-08-16 23:57 | NUR ---
PT ALERT AND ORIENTED X 1. INCONT OF URINE. PT TAKES MEDS CRUSHED IN APPLESAUCE WITHOUT DIFFICULTY. PT DENIES PAIN OR DISCOMFORT. BED ALARM ON FOR SAFETY. PT CHECKED ON HOURLY ROUNDS.
[2019-08-17 05:31] LABS: ABSOLUTE NEUTROPHILS 6.6 thou/uL (1.4-8.2); BASOPHILS 0.8 % (0.0-2.0); EOSINOPHILS 5.4 % (0.0-3.0); HEMATOCRIT 34.9 % (42.0-52.0); HEMOGLOBIN 11.6 gm/dL (14.0-18.0); MCH 32.2 pg (26.0-34.0); MCHC 33.2 g/dL (28.0-37.0); MONOCYTES 8.5 % (1.0-8.0); PLATELET COUNT 260 thou/uL (150-400); POLYS 66.3 % (36.0-66.0)
[2019-08-17 05:34] LABS: ALBUMIN 2.4 g/dL (3.4-5.0); CALCIUM 9.1 mg/dL (8.5-10.1); CREATININE 0.9 mg/dL (0.7-1.3); MAGNESIUM 1.6 mg/dL (1.8-2.4); POTASSIUM 4.5 mmol/L (3.5-5.1)
[2019-08-17 07:43] VITALS: BP 144/87
--- NOTE | 2019-08-17 09:30 | NUR ---
son azul stopped by office " 1st choice is [facility] and [facility] is 2nd choice for dad"/azul. referral to be sent as requested by family.
--- NOTE | 2019-08-17 10:53 | NUR ---
DISCHARAGE PLANNING. POST ACUTE RECOMMENDED AT DISCHARGE. ANTICIPATED DISCHARGE PLANNED FOR 08/22 PER UNIT CM. PATIENT REFERRAL FAXED TO [facility] ADMISSIONS FOR [facility] NEEDS. CALL PLACED TO GENOVEVA TO NOTIFY OF REFERRAL. GENOVEVA TO REVIEW AND NOTIFY CM. FOLLOWING.
--- NOTE | 2019-08-17 14:22 | NUR ---
ASSUMED CARES AT 0700. PT ORIENTED TO PERSON ONLY. DENIES PAIN. VITALS REMAIN STABLE. PT CONTINUES TO REDNESS AROUND HIS SACRAL AND STUART AREA, SITES CLEANED AND BARRIER CREAM APPLIED. PT REPOSITIONS SELF INDEPENDENTLY. REMAINS [id number] OF BOWEL AND BLADDER. PT UP WITH 1 MOD ASSIST, GB AND WALKER. Q1H VISUAL CHECKS. CALL LIGHT WITHIN REACH. FALL PRECAUTIONS IN PLACE
[2019-08-17 19:35] VITALS: BP 115/66
--- NOTE | 2019-08-17 22:36 | NUR ---
PT ASSESSMENT DONE AND VSS. MEDS GIVEN AND WELL TOLERATED. PT ONLY DRANK ONE SIP OF THE THICKENED WATER. REFUSED TO DRINK MORE. FALL PRECAUTIONS IN PLACE. SLEEPING WELL. HOURLY ROUNDING. CALL LIGHT IN REACH. WILL CONTINUE TO MONITOR.
[2019-08-18 07:49] VITALS: BP 136/88
--- NOTE | 2019-08-18 13:45 | NUR ---
ASSUMED CARES AT 0700. REPORTS SLEPT FAIR. PT ORIENTED TO PERSON ONLY, FORGETFUL, FOLLOW COMMANDS. DENIES PAIN. VITALS REMAIN STABLE. PT CONTINUES TO REDNESS AROUND HIS SACRAL AND STUART AREA, SITES CLEANED AND BARRIER CREAM APPLIED. PT REPOSITIONS SELF INDEPENDENTLY WHILE IN BED. REMAINS [id number] OF BOWEL AND BLADDER. PT UP WITH 1 MOD ASSIST, GB AND WALKER. OFFERED TOILETING FREQUENTLY. HAD 3X LOOSE STOOL. CONTINUE TO BE ON FLAGYL DAILY, PROBIOTIC. OFFERED SUPPORTIVE CARE. ENCOURAGED PT TO VOICE HIS NEEDS. MEDS CRUSHED AND GIVEN WITH APPLE SAUCE. PT IS ON ASPIRATION PRECAUTION. UP TO DINNING ROOM FOR MEALS. APPETITE IS GETTING BETTER. ATE 75% FOR BREAKFAST AND LUNCH. PARTICIPATES WITH THERAPY. RESTING IN BED AT THIS MOMENT. Q1H VISUAL CHECKS. CALL LIGHT WITHIN REACH. FALL PRECAUTIONS IN PLACE. WILL CONTINUE TO MONITOR.
[2019-08-18 19:20] VITALS: BP 133/81
--- NOTE | 2019-08-19 02:44 | NUR ---
ASSESSMENT: PT REMAIN ALERT AND ORIENT TIMES TWO WITH SOME FORGETFULNESS. PT WANTED TO KNOW "WHAT THE HELL WAS GOING ON AROUND HERE". PT WAS REORIENT TO PLACE, TIME AND SITUATION. NO ASPIRATING THIS SHIFT. MIN-MOD DIRECTOR OF SUSTAINABLE DESIGN, JOHNNY, SLEPT MOSTLY DURING THE EARLY PART OF THE MORNING. SLOW PROGRESS TOWARDS DC GOALS, WILL CONTINUE TO MONITOR.
[2019-08-19 08:00] VITALS: BP 122/77
--- NOTE | 2019-08-19 13:45 | NUR ---
ASSUMED CARE OF PT AT 0715. PT IS A&OX3 WITH FORGETFULLNESS. IS STABLE. IS ON ROOM AIR. DENIES PAIN. IS UP WITH 1 ASSIST, GB, WALKER. FALL PRECAUTIONS CONTINUED THIS SHIFT. PT IS TO BE SUPERVISED FOR ALL MEALS IN DINNING ROOM. TAKES MEDS CRUSHED IN [employer]. LABS & VITALS REVIEWED. PT IS CURRENTLY IN BED SLEEPING. BED ALARM ON. CALL LIGHT WITHIN REACH. WILL CONTINUE TO MONITOR.
[2019-08-19 20:20] VITALS: BP 119/77
--- NOTE | 2019-08-19 23:03 | NUR ---
PT ASSESSMENT DONE AND VSS. MEDS GIVEN AND WELL TOLERATED. FALL PRECAUTIONS IN PLACE. SLEEPING WELL. HOURLY ROUNDING. CALL LIGHT IN REACH. WILL CONTINUE TO MONITOR.
[2019-08-20 07:59] VITALS: BP 112/67
[2019-08-20 08:05] LABS: CALCIUM 9.1 mg/dL (8.5-10.1); POTASSIUM 4.8 mmol/L (3.5-5.1)
--- NOTE | 2019-08-20 09:24 | NUR ---
ASSUMED CARES AT 0700. PT ORIENTED TO PERSON ONLY, FORGETFUL, FOLLOW COMMANDS. FINISHED WITH HAZEL YESTERDAY. ON IMMODIUM BID DAILY. NOTIFIED RYAN AND OBTAINED ORDER TO CHANGE IMMODIUM PRN NOW. DENIES PAIN. VITALS REMAIN STABLE. PT CONTINUES TO REDNESS AROUND HIS SACRAL AND STUART AREA, SITES CLEANED AND BARRIER CREAM APPLIED. PT REPOSITIONS SELF INDEPENDENTLY WHILE IN BED. REMAINS [id number] OF BOWEL AND BLADDER. PT UP WITH 1 MOD ASSIST, GB AND WALKER. OFFERED TOILETING FREQUENTLY. OFFERED SUPPORTIVE CARE. ENCOURAGED PT TO VOICE HIS NEEDS. MEDS CRUSHED AND GIVEN WITH APPLE SAUCE. PT IS ON ASPIRATION PRECAUTION. UP TO DINNING ROOM FOR MEALS. APPETITE IS GETTING BETTER. ATE 100% FOR BREAKFAST DRANK 460CC FLUID THIS AM. B/P 112/67, HR 78. HELD NOVASC ORDERED. ENCOURAGE PT TO PARTICIPATE WITH THERAPY. Q1H VISUAL CHECKS. CALL LIGHT WITHIN REACH. FALL PRECAUTIONS IN PLACE. WILL CONTINUE TO MONITOR.
[2019-08-20 16:39] LABS: MAGNESIUM 1.6 mg/dL (1.8-2.4)
[2019-08-20 19:20] VITALS: BP 105/59
--- NOTE | 2019-08-21 02:24 | NUR ---
PT ALERT AND ORIENTED X 3. INCONT OF URINE. PT TAKES MEDS CRUSHED IN APPLESAUCE. PT DENIES PAIN OR DISCOMFORT. PT CALLS OUT FREQUENTLY FOR VARIOUS THINGS. BED ALALRM ON FOR SAFETY. PT CHECKED ON HOURLY ROUNDS.
[2019-08-21 08:00] VITALS: BP 123/80
--- NOTE | 2019-08-21 10:47 | NUR ---
chart copy requested from 4w rod puller and coiler for pt dc to [facility] for cont rehab before returning home with son.
--- NOTE | 2019-08-21 12:20 | NUR ---
team meetings, recommendation: puree solids with honey thick liquids. chart copies already requested. karina m[facility]arthy skilled. dc 27[facility], pt can go in wheel chair van with support left side. bedside nurse to call report to [phone]
--- NOTE | 2019-08-21 13:17 | NUR ---
ASSUMED CARES AT 0700. PT ORIENTED TO PERSON ONLY, FORGETFUL, FOLLOW COMMANDS. UP AND PARTICIPATES WITH THERAPY. CONTINUE TO ON ASPIRATION PRECAUTION, UP TO DINNING ROOM FOR MEALS. VITAL STIM WITH ST THIS AM. CONTINUE TO BE ON HONEY THICKENER. PT LOVES TO DRINK ORANGE CAN DRANK 4-5 CARTS PER MEAL DOESN'T LIKE WATER THICKNER. DENIES PAIN. VITALS REMAIN STABLE. PT CONTINUES TO REDNESS AROUND HIS SACRAL AND STUART AREA, SITES CLEANED AND BARRIER CREAM APPLIED. PT REPOSITIONS SELF INDEPENDENTLY WHILE IN BED. REMAINS [id number] OF BOWEL AND BLADDER. PT UP WITH 1 MOD ASSIST, GB AND WALKER. OFFERED TOILETING FREQUENTLY. OFFERED SUPPORTIVE CARE. ENCOURAGED PT TO VOICE HIS NEEDS. MEDS CRUSHED AND GIVEN WITH APPLE SAUCE. HELD NOVASC ORDERED PER PARAMETER. ENCOURAGE PT TO PARTICIPATE WITH THERAPY. Q1H VISUAL CHECKS. CALL LIGHT WITHIN REACH. FALL PRECAUTIONS IN PLACE. WILL CONTINUE TO MONITOR.
[2019-08-21 19:50] VITALS: BP 114/57
--- NOTE | 2019-08-21 22:24 | NUR ---
PT ASSESSMENT DONE AND VSS. MEDS GIVEN CRUSHED WITH APPLESAUCE AND WELL TOLERATED. FALL PRECAUTIONS IN PLACE. SLEEPING WELL. HOURLY ROUNDING. CALL LIGHT IN REACH. WILL CONTINUE TO MONITOR.
[2019-08-22] MEDS ORDERED: NORVASC10 MG PO (08:18)
[2019-08-22] MEDS ORDERED: ACIDOPHILUS1 EAC4 PO (08:18)
[2019-08-22] MEDS ORDERED: ROBITUSSIN100 MG/53 PO (08:18)
[2019-08-22 10:30] VITALS: BP 146/93
[2019-08-22] MEDS ORDERED: FLOMAX0.4 MG PO (11:04)
--- NOTE | 2019-08-22 12:47 | NUR ---
ASSUMED CARE OF PATIENT AT 0700. VSS. ROOM AIR. ALERT AND ORIENTED TO SELF. PATIENT CALM AND COMPLIANT WITH MEDICATIONS/TREATMENT. REPORT GIVEN TO NURSE AT [facility] AT AROUND 1242. PATIENT TAKEN BY TRANSPORTATION BY WHEELCHAIR AT AROUND 1246. CHART COPY GIVEN TO TRANSPORTER.
== END 2019-08-22 12:50 | DRG 178 ==
PROVIDERS: Hospitalist; Internal Medicine; Nurse Practitioner; Nurse Practitioner Family; ADMIT Physical Medicine & Rehabilitation
DX: J69.0 Pneumonitis due to inhalation of food and vomit (principal); N17.9 Acute kidney failure, unspecified; K52.1 Toxic gastroenteritis and colitis; I69.354 Hemiplegia and hemiparesis following cerebral infarction affecting left non-dominant side; R13.10 Dysphagia, unspecified; E78.5 Hyperlipidemia, unspecified; G47.00 Insomnia, unspecified; R26.9 Unspecified abnormalities of gait and mobility; R53.81 Other malaise; E55.9 Vitamin D deficiency, unspecified; E53.8 Deficiency of other specified B group vitamins; G31.84 Mild cognitive impairment of uncertain or unknown etiology; R33.9 Retention of urine, unspecified; R63.4 Abnormal weight loss; Z53.29 Procedure and treatment not carried out because of patient's decision for other reasons; E87.6 Hypokalemia; T36.8X5A Adverse effect of other systemic antibiotics, initial encounter; I12.9 Hypertensive chronic kidney disease with stage 1 through stage 4 chronic kidney disease, or unspecified chronic kidney disease; N18.9 Chronic kidney disease, unspecified; R32 Unspecified urinary incontinence; Z79.899 Other long term (current) drug therapy; Z79.82 Long term (current) use of aspirin; Z87.891 Personal history of nicotine dependence; Z68.22 Body mass index [BMI] 22.0-22.9, adult; Y92.89 Other specified places as the place of occurrence of the external cause
CPT/HCPCS: 10112

== ENCOUNTER 2020-07-16 17:58 | Inpatient (IN) | payer OTHER, BC ==
[~2020-07-16] VITALS: Ht 170.2 cm; Wt 76.7 kg
[~2020-07-16 17:58] MED LIST changes: +ACIDOPHILUS1 EAC4 PO; +AUGMENTIN 875-1 EACH PO; +B-12500 MCG PO; +DIFLUCAN150 MG PO; +FLOMAX0.4 MG PO; +FOLIC ACID1 MG PO; +NORVASC10 MG PO; +ROBITUSSIN100 MG/53 PO
[2020-07-16 18:02] VITALS: BP 142/93
[2020-07-16] MEDS ORDERED: SENNA8.8 MG/5 M PO (18:20)
[2020-07-16] MEDS ORDERED: TRAMADOL 50 MG50 MG PO (18:20)
[2020-07-16] MEDS ORDERED: VOLTAREN100 GM TOP (18:20)
[2020-07-16] MEDS ORDERED: XANAX 0.25 MG0.25 MG PO (18:20)
[2020-07-16 18:24] LABS: HEMATOCRIT 43.9 % (42.0-52.0); MCH 30.8 pg (26.0-34.0); MCHC 34.2 g/dL (28.0-37.0); MCV 90.1 fL (80.0-100.0); PLATELET COUNT 290 thou/uL (150-400); RBC 4.87 mil/uL (4.50-6.00); RDW 13.5 % (10.5-14.5); WBC 20.6 thou/uL (4.0-11.0)
[2020-07-16 18:29] LABS: ANION GAP 6 mmol/L (7-16); BUN 41 mg/dL (7-18); CALCIUM 10.9 mg/dL (8.5-10.1); CHLORIDE 106 mmol/L (98-107); CO2 28 mmol/L (21-32); CREATININE 1.9 mg/dL (0.7-1.3); GLUCOSE 138 mg/dL (74-106); POTASSIUM 3.9 mmol/L (3.5-5.1); SODIUM 140 mmol/L (136-145)
[2020-07-16 18:39] LABS: ALBUMIN 3.2 g/dL (3.4-5.0); SGOT 35 U/L (15-37); SGPT 23 U/L (30-65); TOTAL BILIRUBIN 0.5 mg/dL (0.2-1.0); TOTAL PROTEIN 7.1 g/dL (6.4-8.2); TROPONIN-I <0.06 ng/mL (<0.06)
[2020-07-16 18:50] LABS: ABSOLUTE NEUTROPHILS 16.3 thou/uL (1.4-8.2)
[2020-07-16 19:04] LABS: BE(vivo) 2.2 mmol/L (-2 to +3); HCO3 26.2 mmol/L (22.0-26.0); PCO2 38.9 mmHg (35.0-45.0); PO2 79.2 mmHg (80.0-100.0); pH 7.446 (7.360-7.450); sO2 96.2 % (92.0-98.0)
[2020-07-16 21:34] VITALS: BP 157/76
--- NOTE | 2020-07-16 21:34 | NUR ---
HAND OFF TOOL SENT TO [facility]
[2020-07-16 21:44] VITALS: BP 137/82
[2020-07-16 22:17] VITALS: BP 168/93
[2020-07-17] MEDS ORDERED: NORVASC 2.5 MG2.5 M1 PO (02:19)
[2020-07-17] MEDS ORDERED: ALPRAZOLAM 0.0.25 MG PO (02:27)
[2020-07-17] MEDS ORDERED: PROZAC20 MG PO (02:28)
[2020-07-17] MEDS ORDERED: ULTRAM 50MG TAB50 MG PO (02:30)
[2020-07-17] MEDS ORDERED: TYLENOL325 M1 PO ×2 (02:32→02:42)
--- NOTE | 2020-07-17 02:32 | NUR ---
DPOA - JAIME LUIGI (SON) [phone] [employer], Giovanni MELVIN SPOKE WITH FAMILY REGARDING CODE STATUS. PER NATALIIA, FAMILY OKAY WITH INTUBATION AND MEDICATION IF NECESSARY, DECLINED CPR. THIS IS PER VERBAL NURSING REPORT. CALRIFICATION WITH DPOA RECOMMENDED TEREZA MEYERS (SON) [phone]
[2020-07-17] MEDS ORDERED: SENNA PLUS TAB1 EACH PO (02:37)
[2020-07-17] MEDS ORDERED: MELATONIN3 M1 PO (02:40)
[2020-07-17 04:03] VITALS: BP 141/79
[2020-07-17 05:38] LABS: URINE BILIRUBIN NEGATIVE (Negative); URINE BLOOD 3+ (Negative); URINE CLARITY CLOUDY; URINE COLOR YELLOW; URINE GLUCOSE-RANDOM* NEGATIVE (Negative); URINE KETONES NEGATIVE (Negative); URINE NITRITE-REFLEX NEGATIVE (Negative); URINE PROTEIN (DIPSTICK) 1+ (Negative); URINE SPECIFIC GRAVITY 1.025 (1.005-1.035); URINE UROBILINOGEN 0.2 E.U./dl (0.2-1.0)
[2020-07-17 06:08] LABS: URINE LEUKOCYTES-REFLEX 1+ (Negative)
[2020-07-17 06:12] LABS: HEMATOCRIT 40.3 % (42.0-52.0); HEMOGLOBIN 13.1 gm/dL (14.0-18.0); MCH 30.1 pg (26.0-34.0); MCHC 32.5 g/dL (28.0-37.0); MCV 92.6 fL (80.0-100.0); RBC 4.35 mil/uL (4.50-6.00); RDW 13.7 % (10.5-14.5); WBC 14.7 thou/uL (4.0-11.0)
[2020-07-17 06:39] LABS: CALCIUM 9.5 mg/dL (8.5-10.1); CREATININE 1.3 mg/dL (0.7-1.3); POTASSIUM 4.2 mmol/L (3.5-5.1)
[2020-07-17 06:57] LABS: BACTERIA-REFLEX 1-9 Few /HPF (None Seen); MUCUS 0-3 Light strn/LPF (None Seen); SQUAMOUS 0-3 Few /LPF (0-3); URINE RBC >20 Many /HPF (0-2); URINE WBC-REFLEX 6-15 Few /HPF (0-5)
[2020-07-17 06:58] LABS: CALCIUM OXALATE 4-10 Moderate /LPF (None Seen); CASTS None Seen /LPF (None Seen); YEAST-REFLEX Present (None Seen)
[2020-07-17 07:35] VITALS: BP 147/90
--- NOTE | 2020-07-17 07:54 | EKG ---
[facility] [place] [address] ELECTROCARDIOGRAM REPORT Name: HONG MEYERS Room #: 359-P ADM IN M.R.#: [id number] Admission: 07/16/20 Attend Phys: Jeb Beltran MD Discharge: Date of : 38 Report #: [id number] THIS REPORT FOR: cc: Gerard Donnelly MD, Christopher B. MD Santiago, Patrick MD [facility] ~ THIS REPORT FOR: //name// [facility] ED Test Date: 2020-07-16 Test Time: 18:10:06 Pat Name: HONG MEYERS Department: Room: [facility] Gender: M Editor Publications: KATHLEEN : 1940 Requested By: Antonio Gonzalez Order Number: [id number] MD: Stuart Moreno Measurements Intervals [place] Rate: 107 P: 68 CT: 161 QRS: 67 QRSD: 83 T: 76 QT: 331 QTc: 442 Interpretive Statements Sinus tachycardia Low voltage, precordial leads Compared to ECG 07/31/2019 23:02:36 Low QRS voltage now present Sinus rhythm no longer present Electronically Signed On 07-17-2020 7:54:37 CDT by Stuart Moreno [email or web address] <ELECTRONICALLY SIGNED> By: Stuart Moreno MD, FACC 07/17/20 0754 1810 09 Stuart Moreno MD, [facility] /EPI
--- NOTE | 2020-07-17 07:57 | NUR ---
PT ADMITTED FROM ER TO R/O COVID. CXRAY + PNEUMONITIS. NS AT 75 INFUSING. ABX HUNG ORDERED. CALLED ID CONSULT THIS AM. PT HAS EXPRESSIVE APHASIS. ANSWERS SOME COMMANDS YES OR NO. HX OBTAINED PARTIALLY FROM PT and some over the phone with his SON CHRISTO. ORIENTED PT TO . SIDE RAILS UP X2. BED DOWN. CALL LIGHT IN REACH. BED ALARM IS ON. UA SENT TO LAB . FLAGYL STARTED FOR YEAST. CARE PLANINITIATED.
[2020-07-17 11:16] VITALS: BP 134/83
[2020-07-17 15:36] VITALS: BP 172/77
--- NOTE | 2020-07-17 15:51 | NUR ---
PT ASSESSED AT START OF SHIFT. HX OF CVA AND DOES NOT SPEAK MUCH. LOOSE NONPRODUCTIVE COUGH. SPEECH CONSULT FOR ASP PNEUMONIA. PT ON PUREED DIET W/ HONEY THICK LIQUIDS. MEDS CRUSHED. COACHED PT ON CHIN TUCKING AND HE WAS ABLE. TURNED Q2HRS. ABLE TO TURN W/ LITTLE HELP. SKIN INTACT. NO C/O PAIN.
--- NOTE | 2020-07-17 15:56 | NUR ---
INITIAL ASSESSMENT: Received consult. MARGARET reviewed chart and spoke with nursing and attending physician. Pt was admitted from [facility] facility due to chest pain/AMS. Pt placed in Enhanced Isolation to r/o COVID-19. Pt's test was negative. Enhanced Isolation precautions have been discontinued. Pt with hx of CVA. MARGARET left voice message for pt's son, Jorge. MARGARET placed call to [facility] and spoke with Mimi. Pt is from one of their small [place] facilities. Pt is normally w/c bound and able to assist with transfers. Pt is on pureed diet and nectar thickened liquids. Pt's PCP is Dr. Mino Donnelly. Pt has been to and [facility] SNF in the past. The [place] facility has [facility] available, should pt need HH when he returns. The facility is only allowing one HH and one hospice provider ([facility]) into their facility. Pt will need to be evaluated prior to returning. MARGARET requested PT/OT evals to be ordered. The [place] facility is not able to admit pts back over the weekend. MARGARET faxed clinical info to the facility for review. MARGARET is following to assist as needed with discharge planning. [facility]- Mimi: [phone]
[2020-07-17 19:23] VITALS: BP 186/98
[2020-07-17 21:36] VITALS: BP 145/68
--- NOTE | 2020-07-17 21:40 | NUR ---
Pt resting quietly after ativan given for anxiety AND RESTLESSNES. BP ELEVATED WHEN DOUGH MIXER HELPER DID VS. RECHECKED BP WHEN I REALIZED THIS UPON ROUNDS. PRESENTLY BP HAS COME DOWN. PT RESTING QUIETLY WATCHING DEBATE ON TV. BED DOWN CALL LIGHT IN REACH. BED ALARM ON. MOISTURE BARRIET TO BOTTOM. MACIAS INTACT DRAINING CLEAR YELLOW URINE.
[2020-07-18 02:00] VITALS: BP 142/83
--- NOTE | 2020-07-18 03:17 | NUR ---
patient transfer from . patient is covid negative.patient is non verbal. patient has a orr cath, cath care done. patient turned q 2 hours. patient on 2l of oxygen no soa or distress noted this shift.patient on puree diet, honey thicken liquids.fall precaution in place. patient in bed asleep at this time breathing regular and unlaboured.
[2020-07-18 07:41] VITALS: BP 143/90
[2020-07-18 11:02] LABS: ABSOLUTE NEUTROPHILS 8.9 thou/uL (1.4-8.2); BASOPHILS 0.8 % (0.0-2.0); HEMATOCRIT 40.1 % (42.0-52.0); HEMOGLOBIN 13.1 gm/dL (14.0-18.0); LYMPHOCYTES 13.4 % (24.0-44.0); MCH 29.8 pg (26.0-34.0); MCHC 32.7 g/dL (28.0-37.0); MCV 91.2 fL (80.0-100.0); MONOCYTES 6.7 % (1.0-8.0); PLATELET COUNT 223 thou/uL (150-400); POLYS 78.1 % (36.0-66.0); RDW 13.5 % (10.5-14.5); WBC 11.4 thou/uL (4.0-11.0)
[2020-07-18 11:10] LABS: CALCIUM 9.3 mg/dL (8.5-10.1); CREATININE 0.9 mg/dL (0.7-1.3); POTASSIUM 3.8 mmol/L (3.5-5.1)
--- NOTE | 2020-07-18 13:39 | NUR ---
CARE TEAM INDICATED THAT PT IS TO HAVE ABDOMINAL CT DONE THIS DAY. DR. MONTGOMERY INDICATED THAT PT WOULD LIKELY BENEFIT FROM [facility] PRIROR TO RETURNING TO HIS ASSISTED LIVING FACILITY AT [facility]. CM CALLED AND SPOKE WITH PT'S SON JAIME. HE INDICATED THAT HE IS AGREEABLE WITH SHORT TERM SKILLED [facility] ACUTE CARE STAY. HE INDIATED THAT THEY WOULD BE INTERESTED IN PT BEING ASSESSED FOR POSSIBLE ADMISSION TO . CM NOTIFIED [facility] AND THEY ARE TO ASSESS. CM ALSO EMAILED JAIME A SNF LIST FRO REVIEW IN THE EVENT SKILLED IS MORE APPROPRIATE. HE IS TO REVIEW IT WITH HIS BROTHER. PT AND OT WERE ORDERED AND ARE TO MAKE RECOMMENDATIONS. PT IS ON 2L O2 AND HADN'T BEEN ON O2 PLUMBER PIPE FITTING. IF PT IS ACCEPTED TO FAMILY WOULD BE FINE WITH HIM GOING THERE ONCE MEDICALLY STABLE. POSSIBLE DISCHARGE TO ONCE MEDICALLY STABLE VS. SKILLED REHAB. PT'[place] FACILITY DOESN'T ACCEPT WEEKEND DISCHARGES AND PT WOULD NEED TO BE ASSESSED FOR READMISSION. CM TO FOLLOW INDICATED WITH DC PLANNING.
--- NOTE | 2020-07-18 17:29 | NUR ---
FAXED REFERRAL TO [facility] RECEIVED CONFIRMATION AND WILL F/U WITH ADM ON TUESDAY.
--- NOTE | 2020-07-18 18:09 | NUR ---
The staff asked Cony Webb if the patient needed to have urine catheter, Cony Webb voiced that he would check it.
--- NOTE | 2020-07-18 18:10 | NUR ---
Patient did not eat dinner, BG checked. will pass it on to the night nurse.
[2020-07-18 19:25] VITALS: BP 149/83
[2020-07-19 07:20] VITALS: BP 136/85
--- NOTE | 2020-07-19 07:32 | NUR ---
ASSUMED PT CARE AROUND 193O. VSS. NO S/S ACUTE DISTRESS NOTED OR REPORTED AT THIS TIME. CARE TRNASFERRED TO AM RN AT THIS TIME.
[2020-07-19 15:30] VITALS: BP 127/81
[2020-07-19 19:10] VITALS: BP 116/77
--- NOTE | 2020-07-19 19:43 | NUR ---
Assumed pt care this am, Vs stable. pt is a total care and feeder. Was able to do Q2 turns. FC in place draining light yellow urine. Pt is a feeder ate some of his meals, prefers to drink orange juice. Diet is pureed and honey thickened liquids. Medications crushed and given with pudding. POC followed with no signs or verbalizations of distress noted. small frequent meals and hydration done through out the day. endorsed to the night nurse.
--- NOTE | 2020-07-20 02:07 | NUR ---
ASSUMED PT CARE AT 1915. PT IS ALERT TO SELF. PT IS ON 2L NASAL CANULA. PT PULLS OUT NC AT TIMES. PT HAS A MACIAS. PERFORMED Q2 TURNS ON PT. PT TAKES MEDS CRUSHED WITH HONEY THICKED ORANGE JUICE. PT DENIES PAIN. PT HAS SODIUM CHLORIDE AT 75 ML/HR TO HIS LEFT HAND. PT IS A TOTAL CARE. WILL CONTINUE TO MONITOR.
[2020-07-20 07:15] VITALS: BP 162/104
--- NOTE | 2020-07-20 07:48 | NUR ---
ASSUMED CARE AT 0700 THIS MORNING. PT. IN BED, IS TOTAL CARE. HE DOES RESPOND TO HIS NAME. HE WAS CHANGED AND TURNED. B/P HIGH. HE RESPONDS TO HIS NAME. HE IS A TOTAL FEEDER.
[2020-07-20 11:26] LABS: HEMATOCRIT 39.2 % (42.0-52.0); HEMOGLOBIN 13.4 gm/dL (14.0-18.0); MCH 30.3 pg (26.0-34.0); MCHC 34.2 g/dL (28.0-37.0); MCV 88.8 fL (80.0-100.0); RBC 4.42 mil/uL (4.50-6.00); RDW 13.1 % (10.5-14.5); WBC 15.5 thou/uL (4.0-11.0)
[2020-07-20 11:41] LABS: CALCIUM 9.1 mg/dL (8.5-10.1); CREATININE 1.3 mg/dL (0.7-1.3); POTASSIUM 3.2 mmol/L (3.5-5.1)
[2020-07-20 20:32] VITALS: BP 166/99
--- NOTE | 2020-07-21 04:17 | NUR ---
PATIENT ALERT AND ORIENTED X1. COOPERATIVE WITH CARE. SLEPT THROUGHOUT THE NIGHT. MACIAS TO D/D. 2LNC. IVF INFUSING W/O COMPLICATION. CRUSHING MEDICATION AND SERVING IT WITH APPLESAUCE. FREQUENT TURNS. BS MONTORED PER ORDER. WILL MONITOR.
[2020-07-21 07:20] VITALS: BP 144/82
[2020-07-21 11:11] LABS: ABSOLUTE NEUTROPHILS 9.6 thou/uL (1.4-8.2); BASOPHILS 0.6 % (0.0-2.0); HEMATOCRIT 38.9 % (42.0-52.0); HEMOGLOBIN 12.9 gm/dL (14.0-18.0); LYMPHOCYTES 9.6 % (24.0-44.0); MCH 29.9 pg (26.0-34.0); MCHC 33.2 g/dL (28.0-37.0); MCV 89.9 fL (80.0-100.0); MONOCYTES 7.5 % (1.0-8.0); PLATELET COUNT 240 thou/uL (150-400); POLYS 78.3 % (36.0-66.0); RBC 4.33 mil/uL (4.50-6.00); RDW 13.3 % (10.5-14.5); WBC 12.3 thou/uL (4.0-11.0)
[2020-07-21 11:22] LABS: CALCIUM 9.2 mg/dL (8.5-10.1); CREATININE 1.5 mg/dL (0.7-1.3); MAGNESIUM 1.8 mg/dL (1.8-2.4); POTASSIUM 3.1 mmol/L (3.5-5.1)
--- NOTE | 2020-07-21 14:27 | NUR ---
HCR [facility] IS ABLE TO ACCEPT PT FOR [facility]. SON HAD SPOKEN TO DR. MONTGOMERY YESTERDAY AND HAS NOW INDICATED THAT IF APPROPRIATE HE WOULD PREFER PT RETURN TO HIS AL FACILITY. CM CALLED HIS NURSE TODAY FRANCES AND SHE IS GOING TO SPEAK WITH [facility] WHO CM ALSO CALLED ABOUT HOW THEY WOULD LIKE TO ASSESS FOR POSSIBLE ADMISSION. THEY WILL CALL CM BACK. PT IS ON 2L O2 CURRENTYL, WOULD DC WITH MACIAS CATHETER IN PLACE. CLINICAL UPDATE FAXED TO FACILITY FOR REVIEW. COVID TEST ORDERED. CM TO FOLLOW INDICATED WITH DC PLANNING.
--- NOTE | 2020-07-21 14:41 | NUR ---
FAXED CLINICAL UPDATE TO [facility] RECEIVED CONFIRMATION. DP TO FOLLOW.
[2020-07-21 15:30] VITALS: BP 164/99
[2020-07-21 19:14] VITALS: BP 129/81
--- NOTE | 2020-07-21 19:43 | NUR ---
Assumed pt care this am more alerty today wound respond to questions when asked. Q2 turns done , pt is able to help reposition himself as well. FC in place drainng light yellow urine. Medications are crushed and given with pudding or apple sauce. Pt is a feeder and currently on full liquids and honey thick liquids, prefers orange juice. On 2L of O2 via NC, maintained through out the shift. Son was at the bedside this pm. POC followed, no signs or verbalizations of distress noted.
--- NOTE | 2020-07-22 08:09 | NUR ---
Assumed pt care at 1900. A/OX2,confused but sometimes able to make needs known. C/o pain to knees medicated per EMAR with relief reported. Takes meds crushed in applejuice/honey thickened liquids. IVF infusing via RFA w/o any difficulties. Has a orr to DD with yellow urine noted. Fall precautions in place,resting quietly without any distress noted oxygen in place at 2L/NC.Covid test back and negative.
[2020-07-22 10:00] VITALS: BP 162/95
[2020-07-22] MEDS ORDERED: CEFDINIR300 MG PO (13:50)
[2020-07-22 14:22] VITALS: BP 162/95
--- NOTE | 2020-07-22 14:58 | NUR ---
DIPAK HAD SPOKEN WITH FRANCES AT [facility] AND SHE INDICATED THAT THEY ARE ABLE TO ACCEPT PT BACK ONCE MEDICALLY STABLE. CM NOTIFIED DR. MONTGOMERY. HE INDICATED PT IS MEDICALLY STABLE TO DISHCARGE BACK TO HIS [place] COMUNITY WITH HOME HEALTH SERVICES. EX OX TESTING WAS DONE AND IT WAS DETERMINED THAT PT DIDN'T NEED HOME OXYGEN UPON DISCHARGE. DIPAK FAXED ORDERS TO FRANCES PT'S NURSE AT [facility]. CM NOTIFIED PT'S SON JAIME HE IS AWARE AND AGREEABLE AND WILL COME AND VISIT PT HERE PRIOR TO HIM RETURNING HOME. DIPAK ARRANGED [employer] [facility] BETWEEN [phone]. CHART COPY MADE. REPORT TO BE CALLED TO . CM TO TRY TO GET A HOLD OF YESSICA KINCAID WITH [facility] AND FAX ORDERS. NO OTHER CM INTERENTION INDICATED. CASE CLOSED.
[2020-07-22 16:21] VITALS: BP 162/95
[2020-07-22 16:43] VITALS: BP 159/93
--- NOTE | 2020-07-22 20:03 | NUR ---
PT A&O, VSS, NO C/O PAIN. PATIENT ON PUREED DIET HONEY THICK LIQUIDS. MEDS GIVEN WHOLE IN PUDDING. NO COUGHING NOTICED. PATIENT TAKEN OF 02 BY RESPIRATORY. PATIENT DISCHARGED WITH MACIAS IN PLACE PER MEMBER OF CONGRESS. PATIENT BELONGINGS WITH PATIENT. NO SIGNS OF DISTRESS AT DISCHARGE. PATIENT PICKED UP BY [facility].
== END 2020-07-22 17:32 | disposition home health service (06) | DRG 871 ==
LOC: ER 17:58 → 4W 21:02 → EROBS 21:02 → 3W 21:02 → 4W 07-18 01:53
PROVIDERS: Emergency Medicine; Internal Medicine; Nurse Practitioner Family; Specialist; ADMIT Hospitalist; ATTEND Hospitalist
DX: A41.9 Sepsis, unspecified organism (principal); J69.0 Pneumonitis due to inhalation of food and vomit; J96.01 Acute respiratory failure with hypoxia; N17.9 Acute kidney failure, unspecified; N13.6 Pyonephrosis; R47.01 Aphasia; I69.354 Hemiplegia and hemiparesis following cerebral infarction affecting left non-dominant side; J98.11 Atelectasis; Z20.828 Contact with and (suspected) exposure to other viral communicable diseases; G47.00 Insomnia, unspecified; E86.0 Dehydration; K59.00 Constipation, unspecified; R53.81 Other malaise; I10 Essential (primary) hypertension; E53.8 Deficiency of other specified B group vitamins; E78.5 Hyperlipidemia, unspecified; N13.9 Obstructive and reflux uropathy, unspecified; E55.9 Vitamin D deficiency, unspecified; R13.10 Dysphagia, unspecified; Z79.82 Long term (current) use of aspirin; Z87.891 Personal history of nicotine dependence; Z23 Encounter for immunization; Z79.899 Other long term (current) drug therapy
CPT/HCPCS: 10047; 10879